=== PATIENT | male | born 1990 | race Caucasian/White ===

== ENCOUNTER → 2017-08-16 | Outpatient (CLI) | payer OTHER ==
--- NOTE | ~2017-08-16 | EKG ---
[place], [place] ELECTROCARDIOGRAM REPORT NAME: NISH ACE UNIT #: [id number] ROOM: DOCTOR: DEBBIE ANTON MD BIRTHDATE: [birth year] DOS: 08/16/2017 RATE AND RHYTHM: 68 beats per minute, normal sinus rhythm. IA interval 158 milliseconds, QRS duration 92. Corrected QT interval 425 milliseconds. QRS axis 47. IMPRESSION: 1. Normal sinus rhythm. 2. Left ventricular hypertrophy by voltage criteria, most likely normal as the patient is thin and young. Repolarization abnormality seen, again normal for the age. Overall, it is a normal EKG. DEBBIE ANTON MD CM:EKGRPT:ELECTROCARDIOGRAM REPORT [id number] DEBBIE ANTON MD
== END | disposition home or self-care (01) ==
LOC: RESCLI 01:33
DX: R00.2 Palpitations (principal); R00.1 Bradycardia, unspecified; E66.3 Overweight

== ENCOUNTER → 2017-08-29 | Outpatient (CLI) | payer OTHER | END | disposition home or self-care (01) | LOC: CARD 00:03 | DX: R00.2 Palpitations (principal) ==

== ENCOUNTER → 2017-10-04 | Outpatient (CLI) | payer OTHER | END | disposition home or self-care (01) | LOC: RESCLI 01:22 | DX: R00.2 Palpitations (principal); R00.1 Bradycardia, unspecified; E66.3 Overweight ==